=== PATIENT | male | born 1985 | race Caucasian/White ===

== ENCOUNTER 2018-12-30 22:40 | Observation (INO) ==
[2018-12-31] MEDS ORDERED: Acetaminophen 325 MG TABLET PO PRN (02:01)
[2018-12-31] MEDS ORDERED: Naloxone 0.4 MG/ML INJ IVP PRN (02:01)
[2018-12-31] MEDS ORDERED: Albuterol 2.5 MG/3 ML NEBULIZER IH PRN (02:01)
[2018-12-31] MEDS: 0.9 % Sodium Chloride 1,000 ML IVC SCH ×2 (02:29→12:12)
[2018-12-31 02:48] LABS: Basophils # 0.1 K/mcL (0.0-0.2); Basophils % 0.5 %; Eosinophils # 0.1 K/mcL (0.0-0.6); Eosinophils % 0.9 %; Hematocrit 45.3 % (37.5-50.1); Hemoglobin 14.9 g/dL (12.9-16.9); Immature Granulocytes % 0.4 % (0-4); Lymphocytes # 2.2 K/mcL (0.6-4.6); Lymphocytes % 14.5 %; Mean Corpuscular HGB Conc 32.9 g/dL (31.6-35.5); Mean Platelet Volume 9.3 fL (9.4-12.4); Monocytes # 0.9 K/mcL (0.0-1.3); Monocytes % 5.7 %; Neutrophils # 11.8 K/mcL (1.6-8.9); Platelet Count 232 K/mcL (140-400); Red Blood Count 5.33 M/mcL (4.19-5.50); Red Cell Distribution Width 12.7 % (11.5-14.5); White Blood Count 15.2 K/mcL (4.3-11.1)
[2018-12-31 03:08] LABS: Chol/HDL Ratio 3.6 (0-4.9)
[2018-12-31 03:09] LABS: Alanine Aminotransferase 14 Units/L (7-52); Albumin 4.2 g/dL (3.5-5.7); Albumin/Globulin Ratio 1.6 (1.1-2.2); Alkaline Phosphatase 69 Units/L (34-104); Aspartate Amino Transferase 10 Units/L (13-39); BUN/Creatinine Ratio 11 (6-26); Bilirubin,Total 0.8 mg/dL (0.3-1.0); Blood Urea Nitrogen 10 mg/dL (6-20); Calcium 9.2 mg/dL (8.6-10.3); Carbon Dioxide 25 mEq/L (23-29); Chloride 104 mEq/L (98-107); Globulin 2.6 g/dL (2.4-3.5); Glucose 97 mg/dL (70-105); Magnesium 2.1 mg/dL (1.6-2.6); Osmolality,Calculated 283 (280-300); Potassium 4.1 mEq/L (3.5-5.1); Sodium 137 mEq/L (136-145); Total Protein 6.8 g/dL (6.4-8.9); eGFR For African Americans > 60 (> 60); eGFR For Non-African Americans > 60 (> 60)
[2018-12-31 03:16] LABS: INR 1.1; Prothrombin Time 12.5 Seconds (9.4-12.1)
[2018-12-31 03:19] LABS: Activated Partial Thrombo Time 33.1 Seconds (26.0-36.0)
[2018-12-31] MEDS: levoFLOXacin 500 MG/100 ML 500 MG/100 ML BAG IVPB SCH (04:01)
[2018-12-31] MEDS: Ipratropium/Albuterol Neb 3 ML IH SCH ×4 (04:10→23:40)
--- NOTE | 2018-12-31 04:53 | Internal Med History&Physical ---
Date of Encounter: 12/31/18 Time of Encounter: 01:50 Internal Medicine - H&P: HPI Chief complaint: chest pain Admitted From: Hospital to Hospital Transfer Plans for Post Hospital Care: Home History of present illness: Mr. Cardoza is a 33 year old male who was transferred to [place] from [facility]. He presented there with complaints of chest pain. Patient reportedly has a long-standing history of drug use, primarily methamphetamine and heroin. Workup there was notable for CT of the chest which was concerning for possible pneumonia and/or bronchitis. Patient was reluctant to give urine sample for urine toxicity screen. When I was contacted by [facility], they had just obtained urine sample for drug screen and results were not available yet. Patient reportedly requested transfer to [place]. I accepted the patient in transfer. Cardiac workup was apparently negative at that point. Upon arrival to [place], I saw him shortly after arrival. He describes his chest pain as pleuritic in nature and associated with coughing. He has had a productive cough and low-grade fevers. He denies any hemoptysis. I reviewed his documentation and labs from [facility], and I do not see any documentation of urine drug screen. Mother is present at bedside, and I am unable to obtain adequate history, especially drug history. Patient was reluctant to discuss his social history in front of his mother. He does admit that he has an ankle bracelet in place and is under house arrest for allegations he would not elaborate upon. He denies any history of cardiac problems or respiratory problems. Mother also confirms no significant history of heart disease in family. Past Med Surg Social Fam HX - Past Medical History Attestation: Yes The following information was validated with the patient. Source: patient, obtained from family Medical history: no medical history Psychiatric history: no psych history - Past Surgical History Additional surgical history: tonsilectomy. extraction of all teeth - Social History Smoking Status: Current every day smoker Packs per day: 1pack Smokeless Tobacco Status: No Alcohol use: none Drug use: methamphetamine, IV Drug Use, other (heroin) Current living situation: Home, With Family Activity Level: Independent ambulation Recent Out of Country Travel Within the Last 8 Weeks: No Additional social history: under house arrest - Family History Mother History Unknown: Yes Father History Unknown: Yes Internal Medicine - H&P: Meds Allergy/AdvReac Type Severity Reaction Status Date / Time Amoxicillin Allergy Intermediate Difficulty Verified 12/31/18 02:07 Breathing morphine Allergy Intermediate Difficulty Verified 12/31/18 02:07 Breathing Penicillins Allergy Intermediate Difficulty Verified 12/31/18 02:07 Breathing tramadol Allergy Intermediate Difficulty Verified 12/31/18 02:07 Breathing - Constitutional Constitutional: chills, fever(s), no fatigue, no night sweats - EENT Eyes: no blurry vision, no change in vision Ears: no ear pain, no tinnitus Nose, mouth and throat: no nasal congestion, no sinus pressure, no sore throat - Cardiovascular Cardiovascular ROS IM: chest pain, dyspnea, no orthopnea, no paroxysmal noctur nal dyspnea, no syncope - Respiratory Respiratory: cough, dyspnea, pain on inspiration, chest congestion, change in phlegm color, pain with cough, no hemoptysis, no excessive phlegm production - Gastrointestinal Gastrointestinal: no abdominal pain, no diarrhea, no hematemesis, no hematochezia, no melena, no nausea, no vomiting - Genitourinary Genitourinary ROS male: no dysuria, no flank pain, no hematuria - Musculoskeletal Musculoskeletal ROS IM: no arthralgias, no back pain - Integumentary Integumentary IM: no rash, no jaundice - Neurological Neurological ROS: no disequilibrium, no dizziness, no focal weakness, no frequent falls, no headache(s) - Psychiatric Psychiatric: no anxiety, no depression - Endocrine Endocrine IM: no polydipsia, no polyphagia, no polyuria - Allergic/Immunologic Allergic/Immunologic: no GI upset with certain foods - Constitutional Vitals: Temp Pulse Resp BP Pulse Ox 98.8 F 108 16 134/90 98 12/31/18 03:02 12/31/18 03:02 12/31/18 04:11 12/31/18 03:02 12/31/18 04:11 General appearance: Present: cooperative, A&O X 3, no acute distress, answers questions appropriately Exam: mildly ill appearing; coughing vigorously - Head Head exam: Present: atraumatic, normal inspection - Eye Eye exam: Present: EOMI, PERRL. Absent: scleral icterus Pupils: Present: normal accommodation - ENT ENT exam: Present: mucous membranes dry, normal exam, normal oropharynx - Neck Neck exam general surgery: Present: full ROM, supple, trachea midline. Absent: lymphadenopathy, tenderness, nuchal rigidity, thyromegaly - Respiratory Respiratory exam: Present: prolonged expiratory phase, respiratory distress (mild), rhonchi, wheezes, tachypnea. Absent: accessory muscle use, chest wall tenderness, rales - Cardiovascular Cardiovascular exam: Present: distant heart sounds, RRR, +S1, +S2. Absent: diastolic murmur, systolic murmur - GI/Abdominal GI/Abdominal exam: Present: soft. Absent: distended, hepatomegaly, rebound, tenderness - Extremities Exam Extremities exam: Present: full ROM, normal inspection, warm, radial pulses palpable and symmetrical. Absent: calf tenderness, joint swelling, pedal edema, tenderness - Back Exam Back exam: Present: normal inspection. Absent: CVA tenderness (L), CVA tenderness (R) - Neurological Exam Neurological exam: Present: alert, CN II-XII intact, normal gait, oriented X3, no focal deficits, strengths equal and symetr throughout - Psychiatric Psychiatric exam: Present: flat affect - Skin Skin exam: Present: dry, intact, warm Internal Med - H&P Results - Labs CBC & Chem 7: 12/31/18 02:27 12/31/18 02:27 Labs: Short CBC 12/31/18 Range/Units 02:27 WBC 15.2 H (4.3-11.1) K/mcL Hgb 14.9 (12.9-16.9) g/dL Hct 45.3 (37.5-50.1) % Plt Count 232 (140-400) K/mcL Neutrophils # 11.8 H (1.6-8.9) K/mcL BMP 12/31/18 02:27 Sodium 137 Potassium 4.1 Chloride 104 Carbon Dioxide 25 BUN 10 Creatinine 0.94 Glucose 97 Calcium 9.2 Cardiac Enzymes 12/31/18 Range/Units 02:27 Troponin I < 0.03 (< 0.04) ng/mL Liver Function 12/31/18 Range/Units 02:27 Total Bilirubin 0.8 (0.3-1.0) mg/dL AST 10 L (13-39) Units/L ALT 14 (7-52) Units/L Alkaline Phosphatase 69 (34-104) Units/L Albumin 4.2 (3.5-5.7) g/dL - Assessment and Plan (1) Pneumonia Current Visit: Yes Status: Suspected Assessment and plan: 1. Blood and sputum cultures ordered. 2. Continue IV antibiotics. 3. Oxygen and aerosols as needed. Qualifiers: Pneumonia type: due to unspecified organism Laterality: right Lung location: lower lobe of lung Qualified Code(s): J18.1 - Lobar pneumonia, unspecified organism (2) Chest pain Current Visit: Yes Status: Acute Assessment and plan: 1. Low suspicion for cardiac etiology. 2. However, will order urine toxicology screen as I'm concerned about cocain use. 3. Trend troponins and EKG's as above. 4. ECHO. Qualifiers: Chest pain type: pleurodynia Qualified Code(s): R07.81 - Pleurodynia (3) IV drug abuse Current Visit: Yes Status: Chronic Assessment and plan: 1. Cessation advised. 2. Urine toxicology screen ordered. (4) DVT prophylaxis Current Visit: Yes Status: Acute Assessment and plan: 1. Heparin SQ.
[2018-12-31] MEDS: *HR* Heparin 5,000 UNIT/ML VIAL SQ SCH ×2 (05:40→15:24)
[2018-12-31] MEDS: Ondansetron 4 MG/2 ML VIAL IVP PRN ×2 (08:32→17:35)
[2018-12-31 09:17] LABS: Amphetamine Screen,Urine Positive ng/mL (Cutoff=1000); Barbiturate Screen,Urine Positive ng/mL (Cutoff=200); Benzodiazepines Screen,Urine Negative ng/mL (Cutoff=200); Cannabinoid Screen,Urine Negative ng/mL (Cutoff = 50); Cocaine Screen,Urine Negative ng/mL (Cutoff= 300); Opiate Screen,Urine Positive ng/mL (Cutoff=300); Phencyclidine Screen,Urine Negative ng/mL (Cutoff=25)
[2018-12-31] MEDS ORDERED: *HR* Promethazine 25 MG/ML VIAL IVP ONE (13:10)
[2018-12-31] MEDS ORDERED: Perflutren Lipid Microsphere 1.3 ML in 0.9 % Sodium Chloride 8.7 ML IVP ONE (15:24)
--- NOTE | 2018-12-31 16:29 | Electrocardiograph Report ---
[address] [place], [place] [address] Test Date: 2018-12-31 Pat Name: Aurelio Cardoza Department: 113 Room: 3B39 Gender: M Personnel Officer: : 1985 Requested By: Feroz Gonsalves Order Number: [id number] Reading MD: Terrance Wyatt Measurements Intervals [place] Rate: 83 P: 85 NC: 147 QRS: 91 QRSD: 110 T: 89 QT: 374 QTc: 414 Interpretive Statements SINUS RHYTHM Electronically Signed On 12-31-2018 16:28:09 EDT by Terrance Wyatt
[2019-01-01] MEDS: levoFLOXacin 500 MG/100 ML 500 MG/100 ML BAG IVPB SCH (01:30)
[2019-01-01] MEDS: Ipratropium/Albuterol Neb 3 ML IH SCH ×3 (04:50→15:07)
[2019-01-01 04:51] LABS: Hematocrit 44.9 % (37.5-50.1); Hemoglobin 14.8 g/dL (12.9-16.9); Mean Corpuscular Hemoglobin 27.8 pg (28.0-33.3); Mean Corpuscular Volume 84.4 fL (83.0-100.0); Mean Platelet Volume 9.8 fL (9.4-12.4); Platelet Count 236 K/mcL (140-400); Red Blood Count 5.32 M/mcL (4.19-5.50); Red Cell Distribution Width 12.6 % (11.5-14.5); White Blood Count 11.8 K/mcL (4.3-11.1)
[2019-01-01] MEDS: *HR* Heparin 5,000 UNIT/ML VIAL SQ SCH ×2 (04:58→15:40)
[2019-01-01 05:11] LABS: BUN/Creatinine Ratio 9 (6-26); Blood Urea Nitrogen 9 mg/dL (6-20); Calcium 9.3 mg/dL (8.6-10.3); Carbon Dioxide 25 mEq/L (23-29); Chloride 103 mEq/L (98-107); Glucose 94 mg/dL (70-105); Osmolality,Calculated 284 (280-300); Potassium 3.9 mEq/L (3.5-5.1); Sodium 138 mEq/L (136-145); eGFR For African Americans > 60 (> 60); eGFR For Non-African Americans > 60 (> 60)
[2019-01-01] MEDS ORDERED: Ringers Solution, Lactated 1,000 ML IVC SCH (09:00)
--- NOTE | 2019-01-01 10:05 | Internal Med Progress Note ---
Hospitalist Progress Note - Encounter Date of Encounter: 01/01/19 Time of Encounter: 10:03 - Subjective Interval History: Patient seen and examined in the room. He reported painful swallowing with nausea and vomiting when he attempted to eat or drink. He has no chest pain, cough, shortness of breath, or palpitation currently. Overnight, he has no fever, chills, or night sweats. - Exam Vitals: Temp Pulse Resp BP Pulse Ox 98.3 F 92 16 94/65 97 01/01/19 08:00 01/01/19 08:00 01/01/19 08:00 01/01/19 08:00 01/01/19 08:00 Exam: PHYSICAL EXAMINATION: GENERAL APPEARANCE: The patient is alert, oriented and in no acute distress. HEENT: Head is normocephalic. The sinuses are nontender. Pupils are equal and reactive. The nares are patent. Oropharynx clear without lesions. NECK: Supple without lymphadenopathy. HEART: Regular rate and rhythm. LUNGS: No crackles or wheezes are heard. ABDOMEN: Soft, nontender, nondistended with good bowel sounds heard. Inguinal area is normal. EXTREMITIES: Without cyanosis, clubbing or edema. NEUROLOGICAL: Gross nonfocal. SKIN: Warm and dry without any rash. - Assessment and Plan (1) Pneumonia Current Visit: Yes Status: Suspected Assessment and Plan: 1. Blood and sputum cultures ordered. 2. Continue IV antibiotics. 3. Oxygen and aerosols as needed. (2) Chest pain Current Visit: Yes Status: Acute Assessment and Plan: Serial troponin was negative, EKG has no acute ST-T change, echocardiogram was unremarkable. Urine drug screen was positive for benzodiazepine, opioids, and amphetamine. Telemetry tracing has no acute ST-T change overnight. (3) IV drug abuse Current Visit: Yes Status: Chronic Assessment and Plan: 1. Cessation advised. Patient currently and the house arrest. Mother reported she will talk to senior care assistant to try to get patient to detox program. (4) DVT prophylaxis Current Visit: Yes Status: Acute Assessment and Plan: 1. Heparin SQ. (5) Odontalgia Current Visit: Yes Status: Acute Assessment and Plan: Patient complained of painful swallowing with associated nausea and vomiting w hen attempting to eat/strain. Although this is most likely secondary to drug abuse/withdrawal, we will consult acute surgery for possible EGD studies. Pain control, supportive care for nausea and vomiting, continue IV fluid. - Time Spent with Patient Total time spent is greater than 50% in coordination of care (as documented) at patient's floor/unit and/or counseling patient: Greater than 35 minutes Plan of Care Discussed with: patient Internal Medicine: Result - Labs CBC & Chem 7: 01/01/19 03:10 01/01/19 03:10 Labs: Short CBC 01/01/19 Range/Units 03:10 WBC 11.8 H (4.3-11.1) K/mcL Hgb 14.8 (12.9-16.9) g/dL Hct 44.9 (37.5-50.1) % Plt Count 236 (140-400) K/mcL BMP 01/01/19 03:10 Sodium 138 Potassium 3.9 Chloride 103 Carbon Dioxide 25 BUN 9 Creatinine 1.00 Glucose 94 Calcium 9.3 Cardiac Enzymes 12/31/18 Range/Units 14:13 Troponin I < 0.03 (< 0.04) ng/mL - ABG Interpretation ABG results: PT/INR, D-dimer PT 12.5 Seconds (9.4-12.1) H 12/31/18 02:27 - Impressions Impressions Echocardiogram 12/31/18 02:01 Impressions: LVEF 55%. Normal left ventricular diastolic function. Normal right ventricular structure and function. No significant valvular dysfunction. No pulmonary hypertension. Left Ventricular Wall Motion: Rest Echo Findings All wall segments showed normal motion. Findings: Study Quality * Technically adequate exam. ECG Findings * Normal sinus rhythm. Left Ventricle * LVEF 55%. * Normal LV chamber size, wall thickness and function. * Normal left ventricular diastolic function. Right Ventricle * Normal right ventricular structure and function. Left Atrium * Normal left atrial size. Right Atrium * Normal right atrial size. Aortic Valve * No aortic regurgitation. * Trileaflet aortic valve. * No aortic stenosis. Mitral Valve * No mitral regurgitation. * Normal mitral valve structure. * No mitral stenosis. Tricuspid Valve * Normal tricuspid valve structure. * No tricuspid regurgitation. * Estimated RA pressure is 3 mmHg. Pulmonic Valve * Pulmonic valve is not well visualized. * No pulmonic stenosis. * No pulmonic regurgitation. Pulmonary Artery * Pulmonary artery not well visualized. Aorta * Normally sized aortic root. Pericardium * There is no pericardial effusion present. Interatrial Septum * No evidence of PFO by color Doppler. IVC * Normal IVC dimensions and inspiratory collapse. Consult Discharge Plan - Plan Referrals: NONE,PCP [Primary Care Provider] - (1) Pneumonia Qualifiers: Pneumonia type: due to unspecified organism Laterality: right Lung location: lower lobe of lung Qualified Code(s): J18.1 - Lobar pneumonia, unspecified organism (2) Chest pain Qualifiers: Chest pain type: pleurodynia Qualified Code(s): R07.81 - Pleurodynia
--- NOTE | 2019-01-01 10:40 | AcuteCare Surgery Consult Note ---
Date of Encounter: 01/01/19 Time of Encounter: 10:40 Assessment and Plan (1) Odynophagia Status: Acute Recommend upper endoscopy. Procedure, risk and benefits of upper endoscopy are discussed. Pt understands risks and possible complications. Possible complications include but, are not limited to bleeding, infection or perforation. Pt understands and wishes to proceed as recommended. Consent is obtained. Inpatient upper endoscopy is scheduled. (2) Nausea & vomiting Status: Acute if EGD negative then recommend outpt work up for gallbladder disease. Qualifiers: Qualified Code(s): R11.2 - Nausea with vomiting, unspecified History of Present Illness Consult date: 01/01/19 Reason for consult: other (odynophagia) Requesting physician: Marcelo Calloway History of present illness: This 33 y/o male presents to [facility] from [facility] ED. Pt initial complaint is chest pain. He underwent cardiac work-up that was negative for cardiac problem. His chest CT suggests possible pneumonia for which he is being treated. His mother reports that he c/o pain with swallowing followed by nausea and vomiting. She reports these symptoms are progressively worsening. He denies outright abdominal pain. He denies wt loss. He denies fevers. Past Med Surg Social Fam HX - Past Medical History Medical history: no medical history Psychiatric history: no psych history - Past Surgical History Additional surgical history: tonsilectomy. extraction of all teeth - Social History Smoking Status: Current every day smoker Packs per day: 1pack Smokeless Tobacco Status: No Alcohol use: none Drug use: methamphetamine, IV Drug Use, other (heroin) - Family History Mother History Unknown: Yes Father History Unknown: Yes Medications and Allergies No Known Home Drugs 12/31/18 [History] Allergy/AdvReac Type Severity Reaction Status Date / Time Amoxicillin Allergy Unknown Anaphylaxis Verified 12/31/18 21:33 morphine Allergy Unknown Anaphylaxis Verified 12/31/18 21:33 Penicillins Allergy Unknown Anaphylaxis Verified 12/31/18 21:33 tramadol Allergy Unknown Anaphylaxis Verified 12/31/18 21:33 Review of Systems All systems PM: The remainder of the systems were reviewed and are negative - Constitutional headache(s), lethargy, malaise, no anorexia, no chills, no fatigue, no fever(s), no weakness - EENT Nose, mouth and throat: dysphagia, sore throat, no nasal congestion, no nasal discharge, no sinus pain, no sinus pressure - Cardiovascular chest pain, no diaphoresis, no dyspnea, no edema - Respiratory no cough, no dyspnea, no hemoptysis, no wheezing - Gastrointestinal dysphagia, early satiety, nausea, odynophagia, vomiting, no abdominal pain, no belching, no bloating, no constipation, no heartburn - Genitourinary no difficulty urinating, no dysuria, no flank pain, no hematuria, no urinary frequency - Musculoskeletal no back pain, no joint swelling, no limited range of motion, no neck pain - Integumentary no dry skin, no pruritus, no rash, no wounds, no jaundice - Neurological no confusion, no dizziness, no focal weakness, no weakness - Psychiatric anxiety, depression - Endocrine no fatigue - Hematologic/Lymphatic no easy bleeding, no easy bruising General Surgery Exam Initial Vital Signs Temp Pulse Resp BP Pulse Ox 98.6 F 86 17 116/75 99 12/31/18 00:58 12/31/18 00:58 12/31/18 00:58 12/31/18 00:58 12/31/18 00:58 - General physical appearance well developed, well nourished, no distress. negative: jaundice - Eyes PERRL, normal ocular movement. negative: icteric - ENT normal mucosa, no congestion. negative: nasal discharge - Neck no masses, trachea midline, no lymphadectomy, no venous distension - Respiratory normal respiratory effort, clear to auscultation - Cardiovascular Cardiovascular exam: Present: RRR. Absent: JVD - Abdomen Abdomen general surgery: Present: bowel sounds present, soft, non tender - Genitourinary Present: normal penis with no external lesions - Integumentary Integumentary general surgery: Present: warm and dry - Neurologic Present: CN 2-12 grossly intact - Musculoskeletal Present: normal gait, normal posture - Psychiatric Psychiatric general surgery: Present: A&Ox3, appropriate Exam Initial Vital Signs Temp Pulse Resp BP Pulse Ox 98.6 F 86 17 116/75 99 12/31/18 00:58 12/31/18 00:58 12/31/18 00:58 12/31/18 00:58 12/31/18 00:58 Results - Labs 01/01/19 03:10 01/01/19 03:10 Abnormal lab results WBC 11.8 K/mcL (4.3-11.1) H 01/01/19 03:10 MCH 27.8 pg (28.0-33.3) L 01/01/19 03:10 MPV 9.3 fL (9.4-12.4) L 12/31/18 02:27 11.8 K/mcL (1.6-8.9) H 12/31/18 02:27 PT 12.5 Seconds (9.4-12.1) H 12/31/18 02:27 AST 10 Units/L (13-39) L 12/31/18 02:27 33 mg/dL (40-59) L 12/31/18 02:27 Positive ng/mL (Ufhphg=969) H 12/31/18 07:30 Ur Barbiturates Screen Positive ng/mL (Tvwtfs=100) H 12/31/18 07:30 Ur Amphetamines Screen Positive ng/mL (Ezyoqu=9403) H 12/31/18 07:30 Diabetes panel 01/01/19 Range/Units 03:10 Sodium 138 (136-145) mEq/L Potassium 3.9 (3.5-5.1) mEq/L Chloride 103 (98-107) mEq/L Carbon Dioxide 25 (23-29) mEq/L BUN 9 (6-20) mg/dL Creatinine 1.00 (0.70-1.30) mg/dL Glucose 94 (70-105) mg/dL Calcium 9.3 (8.6-10.3) mg/dL Calcium panel 01/01/19 Range/Units 03:10 Calcium 9.3 (8.6-10.3) mg/dL Pituitary panel 01/01/19 Range/Units 03:10 Sodium 138 (136-145) mEq/L Potassium 3.9 (3.5-5.1) mEq/L Chloride 103 (98-107) mEq/L Carbon Dioxide 25 (23-29) mEq/L BUN 9 (6-20) mg/dL Creatinine 1.00 (0.70-1.30) mg/dL Glucose 94 (70-105) mg/dL Calcium 9.3 (8.6-10.3) mg/dL Adrenal panel 01/01/19 Range/Units 03:10 Sodium 138 (136-145) mEq/L Potassium 3.9 (3.5-5.1) mEq/L Chloride 103 (98-107) mEq/L Carbon Dioxide 25 (23-29) mEq/L BUN 9 (6-20) mg/dL Creatinine 1.00 (0.70-1.30) mg/dL Glucose 94 (70-105) mg/dL Calcium 9.3 (8.6-10.3) mg/dL All other labs normal. - Imaging CT scan - chest: report reviewed (+pneumonia) Consult Discharge Plan - Plan Referrals: Osmel Mascorro DO [Partnered Physician] - 01/14/19 9:00 am
[2019-01-01 14:57] VITALS: BP 125/79
[2019-01-01] MEDS ORDERED: Aminoglycoside Consult 1 EACH MC ONE (17:39)
[2019-01-01] MEDS ORDERED: *HR* Midazolam HCl 5 MG/5 ML VIAL IVP ONE (18:38)
[2019-01-01] MEDS ORDERED: *HR* FentaNYL (PF) 100 MCG/2 ML VIAL IVP ONE (18:39)
--- NOTE | 2019-01-27 10:07 | Event Note ---
Date of Encounter: 01/01/19 Time of Encounter: 19:30 I was notified that pt signed AMA form and left hospital. He does not want the scheduled EGD by Surgery.
== END 2019-01-01 17:40 | disposition left against medical advice (07) ==
LOC: 3BNU
PROVIDERS: ADMIT Pediatrics; ATTEND Pediatrics